=== PATIENT | male | born 1940 | race Two or more races ===

== ENCOUNTER 2022-04-10 12:45 | Inpatient (IN) | payer OTHER ==
[~2022-04-10] VITALS: Ht 172.7 cm; Wt 68.0 kg
[2022-04-10] MEDS ORDERED: FAMOTI PO (14:46)
[2022-04-10] MEDS ORDERED: LIPIT PO (14:46)
[2022-04-10] MEDS ORDERED: GABAPENTIN PO (14:47)
[2022-04-10] MEDS ORDERED: PROTON PO (14:47)
[2022-04-10] MEDS ORDERED: FLOMAX PO (14:47)
[2022-04-10] MEDS ORDERED: [UNRECOGNIZED DRUG - OTHER] PO (14:48)
[2022-04-10] MEDS ORDERED: ELAVIL PO (14:48)
[2022-04-10] MEDS ORDERED: DOX PO (14:49)
[2022-04-14] MEDS ORDERED: PERCOCET 5-3251 EACH PO (16:29)
[2022-04-14] MEDS ORDERED: MEDROLPACK PO (16:29)
[2022-04-14] MEDS ORDERED: AMOX-CLAV 875-1 EACH PO (16:29)
[2022-04-14] MEDS ORDERED: COLACE100 MG PO (16:29)
[2022-04-14] MEDS ORDERED: NEURONTIN800 MG PO (16:29)
== END 2022-04-17 11:02 | DRG 460 ==
LOC: SURG 04-14 07:53 → O/R 04-14 07:53 → SURG 04-14 12:45
PROVIDERS: ADMIT Orthopaedic Surgery Orthopaedic Surgery of the Spine; ATTEND Orthopaedic Surgery Orthopaedic Surgery of the Spine
PROC: 0ST20ZZ Resection of Lumbar Vertebral Disc, Open Approach (ICD-10-PCS; 2022-04-14)
PROC: 0QB20ZZ Excision of Right Pelvic Bone, Open Approach (ICD-10-PCS; 2022-04-14)
PROC: 07DR0ZZ Extraction of Iliac Bone Marrow, Open Approach (ICD-10-PCS; 2022-04-14)
PROC: XRGB0R7 Fusion of Lumbar Vertebral Joint using Custom-Made Anatomically Designed Interbody Fusion Device, Open Approach, New Technology Group 7 (ICD-10-PCS; principal; 2022-04-14 22:00)
DX: M43.16 Spondylolisthesis, lumbar region (principal); M48.062 Spinal stenosis, lumbar region with neurogenic claudication